=== PATIENT | male | born 2005 | race Caucasian/White ===

== ENCOUNTER 2025-01-02 17:41 | Emergency (ER) | payer BC, OTHER ==
[~2025-01-02] VITALS: Ht 165.1 cm; Wt 44.4 kg
[2025-01-02 17:44] VITALS: BP 120/74; PULSE 72; RESP 16; TEMP 98; O2SAT 96
--- NOTE | 2025-01-02 18:00 | Physician Documentation ---
History of Present Illness Chief Complaint: See Chief Complaint Stated Complaint: MULTIPLE MEDICAL ISSUES HPI Patient 19-year-old male that presents to the emergency department accompanied by his dad for concerns for progressive weight loss, decreased appetite and prolonged diarrhea. Reports multiple episodes of syncope with the most recent episode 3 days ago. Patient reports that he has been unable to eat a full meal due to feeling very full quickly for several months now. Patient reports he is able to drink liquids just fine. Reports that he has had episodes of abdominal cramping and diarrhea for several months. Patient denies intentionally trying to lose weight. Patient's father reports that there was some concern that the patient may have had Crohn's disease in earlier in his childhood but they have not have that followed up. Patient denies fever chills nausea blood in his stool or any other symptoms at this time. Medication Reconciliation Allergies: Coded Allergies: No Known Allergies (Unverified , 12/20/14) Past Medical History Alcohol Use: None Drug Use: none Physical Exam Vital Signs: Temperature: 98.0, Source: Temporal, Heart Rate: 72, Respiratory Rate: 16, BP: 120/74, Pulse Oximetry: 96, Weight: 44.400 Oxygen Flow Rate: 0 Progress Results/Orders Results/Orders Vital Signs 01/02/25 17:44 Temp 98.0 Pulse 72 Resp 16 B/P (MAP) 120/74 Pulse Ox 96 O2 Flow Rate 0 Departure Referrals: NO PRIMARY CARE PROVIDER (PCP) LISA MONTES DE OCA Jan 02, 2025 18:00
== END 2025-01-02 20:58 | disposition left against medical advice (07) ==
LOC: ER 17:42
DX: R55 Syncope and collapse (principal)
CPT/HCPCS: 99281